=== PATIENT | female | born 1975 | race Caucasian/White ===

== ENCOUNTER 2022-07-11 23:02 | Emergency (ER) | payer OTHER ==
[~2022-07-11] VITALS: Ht 157.5 cm; Wt 88.0 kg
--- NOTE | 2022-07-11 23:04 | NUR ---
BIBA TO BED #9
[2022-07-11 23:18] LABS: BASOPHILS # (AUTO) 0.1 K/uL (0.00-0.22); BASOPHILS % (AUTO) 0.8 % (0.0-2.0); EOSINOPHILS # (AUTO) 0.2 K/uL (0-0.4); EOSINOPHILS % (AUTO) 2.3 % (0.0-4.0); HEMATOCRIT 42.5 % (36-48); HEMOGLOBIN 14.9 g/dL (12.0-16.0); LYMPHOCYTES # (AUTO) 2.2 K/uL (2.5-16.5); LYMPHOCYTES % (AUTO) 27.7 % (20.5-51.1); MEAN CORPUSCULAR HEMOGLOBIN 32 pg (27-31); MEAN CORPUSCULAR HGB CONC 35 g/dL (33-37); MEAN CORPUSCULAR VOLUME 90.3 fL (80-94); MONOCYTES # (AUTO) 0.6 K/uL (0.8-1.0); MONOCYTES % (AUTO) 7.1 % (1.7-9.3); NEUTROPHILS # (AUTO) 4.9 K/uL (1.8-7.7); NEUTROPHILS % (AUTO) 62.1 % (42.2-75.2); PLATELET COUNT (AUTO) 212 K/uL (140-450); RED BLOOD CELL COUNT(AUTO) 4.71 MIL/uL (4.20-5.40); WHITE BLOOD COUNT (AUTO) 7.9 K/uL (4.8-10.8)
[2022-07-11 23:28] LABS: ANION GAP 16.1 (8-16); CARBON DIOXIDE 25.9 mmol/L (21-32); CREATININE 0.7 mg/dL (0.6-1.3)
[2022-07-11 23:29] VITALS: BP 156/70
--- NOTE | 2022-07-11 23:50 | NUR ---
PATIENT REPORTS HEADACHE, ELEVATED BLOOD PRESSURE AND DIZZINESS WHICH STARTED THIS MORNING. HAS A HISTORY OF HTN, DIABETES, AND HYPERLIPIDEMIA. HISTORY OF COVID INFECTION APPROXIMATELY 3 WEEKS AGO.
--- NOTE | 2022-07-12 00:03 | NUR ---
Note milinina in EDM - 07/12/22 at 0005 by [email or web address] SPOKE WITH PATIENT AT BEDSIDE, PATIENT REPORTS TAKING FIVE (5) 50MG TRAZODONE PILLS. NORMAL DOSAGE FOR PATIENT IS THREE (3) PILLS QHS TO HELP WITH SLEEP. PATIENT REPORTS USING METH LAST NIGHT AND TOOK EXTRA MEDICATION TO HELP HIM SLEEP. PATIENT DENIES PAIN. ALSO REPORTS TAKING OTHER MEDICATIONS FOR MENTAL HEALTH BUT CAN NOT RECALL THE NAME OF THE MEDS.
[2022-07-12] MEDS ORDERED: MECLIZINE 25 MG TAB PO ONE (01:50)
[2022-07-12] MEDS ORDERED: KETOROLAC 15 MG/ML VIAL IM ONE (01:50)
[2022-07-12] MEDS ORDERED: MECL-303 PO (01:50)
--- NOTE | 2022-07-12 02:18 | NUR ---
Patient discharged with v/s stable. Written and verbal after care instructions given and explained. Patient alert, oriented and verbalized understanding of instructions. Ambulatory with steady gait. All questions addressed prior to discharge. ID band removed. Patient advised to follow up with PMD. Rx of meclizine given. Opportunity to ask questions provided and answered.
== END 2022-07-12 02:18 | disposition home or self-care (01) ==
LOC: MED 23:02
DX: R42 Dizziness and giddiness (principal); I10 Essential (primary) hypertension; E11.9 Type 2 diabetes mellitus without complications; E78.5 Hyperlipidemia, unspecified; Z79.899 Other long term (current) drug therapy
CPT/HCPCS: 36415; 80048; 84484; 85025; 93005; 96372; 99284; J1885; J8597